=== PATIENT | female | born 1960 | race Caucasian/White ===

== ENCOUNTER → 2018-02-27 | Outpatient (CLI) | payer OTHER | LOC: FIMAGING 16:19 | PROVIDERS: ATTEND Family Medicine | DX: S92.355A Nondisplaced fracture of fifth metatarsal bone, left foot, initial encounter for closed fracture (principal) ==

== ENCOUNTER 2018-08-28 01:19 | Emergency (ER) | payer OTHER ==
--- NOTE | 2018-08-28 01:32 | EDPHY ---
H & P Stated Complaint: SVT, RAPID HR Time Seen by Provider: 08/28/18 01:32 HPI/ROS: HPI CHIEF COMPLAINT: Rapid heart rate. HISTORY OF PRESENT ILLNESS: Patient is a 57-year-old female presents emergency room stating that she is in SVT. Patient reports she was getting ready to go to bed approximately an hour ago standing in the kitchen doing dishes when all the sudden she felt a fast heart rate. Denies chest pain. States she has had this numerous times in the past. Usually converted with adenosine. She reports to me that she has been seen by Dr. Romano who scheduled for cardiac ablation at the end of August. Past Medical History: History of PSVT. Converted by adenosine. Past Surgical History: No recent surgery Social History: Denies drugs alcohol tobacco. Family History: Noncontributory ROS REVIEW OF SYSTEMS: 10 Systems were reviewed and negative with the exception of the elements mentioned in the history of present illness. Exam Constitutional triage nursing summary reviewed, vital signs reviewed, awake/ alert. Tachycardic 140s at triage. Eyes normal conjunctivae and sclera, EOMI, PERRLA. HENT normal inspection, atraumatic, moist mucus membranes, no epistaxis, neck supple/ no meningismus, no raccoon eyes. Respiratory clear to auscultation bilaterally, normal breath sounds, no respiratory distress, no wheezing. Cardiovascular tachycardic, regular rhythm, no murmur, no edema, distal pulses normal. Gastrointestinal soft, non-tender, no rebound, no guarding, normal bowel sounds, no distension, no pulsatile mass. Genitourinary no CVA tenderness. Musculoskeletal no midline vertebral tenderness, full range of motion, no calf swelling, no tenderness of extremities, no meningismus, good pulses, neurovascularly intact. Skin pink, warm, & dry, no rash, skin atraumatic. Neurologic awake, alert and oriented x 3, AAOx3, moves all 4 extremities equally, motor intact, sensory intact, CN II-XII intact, normal cerebellar, normal vision, normal speech. Psychiatric normal mood/affect. Heme/Lymph/Immune no lymphadenopathy. Differential Diagnosis: Differential diagnosis includes but is not limited to: SVT, AFib, AVRNT, V-tach, VFib ACS, atypical chest pain, pneumothorax, pneumonia, pulmonary embolism, aortic dissection, congestive heart failure, tumor, musculoskeletal pain, esophageal pain, GERD, peptic ulcer disease, pancreatitis Medical Decision Making: Plan for this patient IV establishment with IV fluid bolus, environmental monitoring specialist, vagal maneuvers, EKG, electrolytes, troponin Re-evaluation: EKG interpretation by me on record in [facility] system. Impression time of EKG 1:36 a.m. Junctional rhythm rate of 137, nonspecific intraventricular conduction delay. No acute ischemia. 0145: Vagal maneuver attempted however did not break her SVT. 4:05 a.m. patient's current heart rate 124. This was after 10 mg IV Lopressor. Given them heart rate is still in the 120s will consult Cardiology for further recommendations. Spoke with Cardiology Dr. Yuan, discussed the case at 5:00 a.m. In detail. He does recommend giving her a dose of adenosine. At this does not help her plan will be for diltiazem drip. 0518: Patient was moved from ER room 12 to ER room 1 where she was set up for cardioversion with adenosine. Patient was placed on full environmental monitoring specialist, a bag valve mask was in place and suction, she was placed on the EKG machine with rhythm strip. I was present at bedside. She was given 6 mg IV push of adenosine through her left AC IV. Her SVT in the 140s broke with the adenosine. Rhythm strip was captured and I do not appreciate any significant underlying cardiac arrhythmia. She tolerated this procedure very well. Currently at this time after the adenosine her heart rate is 77, blood pressure 102/82, pulse ox 99% on room air. Post adenosine EKG performed EKG interpretation by me on record in [facility] system. Impression time of EKG 5:17 a.m., sinus rhythm rate of 85, without any signs of acute ischemia. No ST elevation no significant ST depression. T-wave flattening noted V2 V3. 0631: Patient resting comfortably without any complaints. Current heart rate 70, blood pressure 97/77, denies chest pain or shortness of breath and is asking to be discharged. She responded well with adenosine. She had a repeat troponin that is negative. She denies any chest pain or shortness of breath. The patient is requesting discharge. I do recommend she follows up closely with cardiology Additionally if the patient develops chest pain, fast heart rate, shortness of breath or not doing well she should return to the emergency room she understands this and is comfortable this plan. Patient ambulated well throughout the emergency room in no acute distress. Eager for discharge. We discussed return precautions she understands return emergency room she develops worsening symptoms includes shortness of breath, chest pain, syncope, low heart rate or fast heart rate, not doing well Source: Patient - Personal History Current Tetanus Diphtheria and Acellular Pertussis (TDAP): No - Medical/Surgical History Hx Asthma: No Hx Chronic Respiratory Disease: No Hx Diabetes: No Hx Cardiac Disease: Yes Hx Renal Disease: No Hx Cirrhosis: No Hx Alcoholism: No Hx HIV/AIDS: No Hx Splenectomy or Spleen Trauma: No Other PMH: svt - Social History Smoking Status: Never smoked Constitutional: Initial Vital Signs Temperature (C) 36.6 C 08/28/18 01:23 Heart Rate 140 H 08/28/18 01:23 Respiratory Rate 16 08/28/18 01:23 Blood Pressure 110/86 H 08/28/18 01:23 O2 Sat (%) 95 08/28/18 01:23 O2 Delivery Mode Room Air Allergies/Adverse Reactions: No Known Allergies Allergy (Unverified 05/25/15 09:45) Home Medications: Medication Instructions Recorded No Medications [NO HOME 11/14/11 MEDICATIONS] Medical Decision Making - Data Points Laboratory Results: Laboratory Results 08/28/18 01:41 08/28/18 01:41 08/28/18 08/28/18 08/28/18 06:00 01:45 01:41 WBC RBC Hgb Hct MCV MCH MCHC RDW Plt Count MPV Neut % (Auto) Lymph % (Auto) [place] % (Auto) Eos % (Auto) Baso % (Auto) Nucleat RBC Rel Count Absolute Neuts (auto) Absolute Lymphs (auto) Absolute Monos (auto) Absolute Eos (auto) Absolute Basos (auto) Absolute Nucleated RBC Immature Gran % Immature Gran # Sodium 137 mEq/L mEq/L (135-145) Potassium 4.4 mEq/L mEq/L (3.5-5.2) Chloride 106 mEq/L mEq/L (97-110) Carbon Dioxide 23 mEq/l mEq/l (22-31) Anion Gap 8 mEq/L mEq/L (6-14) BUN 27 mg/dL H mg/dL (7-23) Creatinine 1.0 mg/dL mg/dL (0.6-1.0) Estimated GFR 57 Glucose 139 mg/dL H mg/dL (70-100) Calcium 9.8 mg/dL mg/dL (8.5-10.4) POC Troponin I 0.01 ng/mL ng/mL 0.00 ng/mL ng/mL (0.00-0.08) (0.00-0.08) 08/28/18 01:41 WBC 4.23 10^3/uL 10^3/uL (3.80-9.50) RBC 4.56 10^6/uL 10^6/uL (4.18-5.33) Hgb 14.7 g/dL g/dL (12.6-16.3) Hct 41.8 % % (38.0-47.0) MCV 91.7 fL fL (81.5-99.8) MCH 32.2 pg pg (27.9-34.1) MCHC 35.2 g/dL g/dL (32.4-36.7) RDW 11.9 % % (11.5-15.2) Plt Count 279 10^3/uL 10^3/uL (150-400) MPV 9.5 fL fL (8.7-11.7) Neut % (Auto) 49.9 % % (39.3-74.2) Lymph % (Auto) 39.2 % % (15.0-45.0) [place] % (Auto) 7.6 % % (4.5-13.0) Eos % (Auto) 2.8 % % (0.6-7.6) Baso % (Auto) 0.5 % % (0.3-1.7) Nucleat RBC Rel Count 0.0 % % (0.0-0.2) Absolute Neuts (auto) 2.11 10^3/uL 10^3/uL (1.70-6.50) Absolute Lymphs (auto) 1.66 10^3/uL 10^3/uL (1.00-3.00) Absolute Monos (auto) 0.32 10^3/uL 10^3/uL (0.30-0.80) Absolute Eos (auto) 0.12 10^3/uL 10^3/uL (0.03-0.40) Absolute Basos (auto) 0.02 10^3/uL 10^3/uL (0.02-0.10) Absolute Nucleated RBC 0.00 10^3/uL 10^3/uL (0-0.01) Immature Gran % 0.0 % % (0.0-1.1) Immature Gran # 0.00 10^3/uL 10^3/uL (0.00-0.10) Sodium Potassium Chloride Carbon Dioxide Anion Gap BUN Creatinine Estimated GFR Glucose Calcium POC Troponin I Medications Given: Discontinued Medications Adenosine (Adenosine) 6 mg IVP EDNOW ONE Stop: 08/28/18 04:57 Last Admin: 08/28/18 05:15 Dose: 6 mg Sodium Chloride (Ns) 1,000 mls @ 0 mls/hr IV EDNOW ONE; Wide Open PRN Reason: Protocol Stop: 08/28/18 01:34 Last Admin: 08/28/18 01:43 Dose: 1,000 mls Sodium Chloride (Ns) 1,000 mls @ 0 mls/hr IV ONCE ONE PRN Reason: Wide Open Stop: 08/28/18 03:24 Last Admin: 08/28/18 03:25 Dose: 1,000 mls Ketorolac Tromethamine (Toradol) 15 mg IVP EDNOW ONE Stop: 08/28/18 03:20 Last Admin: 08/28/18 03:24 Dose: 15 mg Metoprolol Tartrate (Lopressor Injection) 5 mg IVP EDNOW ONE Stop: 08/28/18 02:07 Last Admin: 08/28/18 02:12 Dose: 5 mg Metoprolol Tartrate (Lopressor Injection) 5 mg IVP EDNOW ONE Stop: 08/28/18 02:56 Last Admin: 08/28/18 03:14 Dose: 5 mg Metoprolol Tartrate (Lopressor Injection) 5 mg IVP EDNOW ONE Stop: 08/28/18 04:23 Last Admin: 08/28/18 04:29 Dose: 5 mg Metoprolol Tartrate (Lopressor Injection) 5 mg IVP EDNOW ONE Stop: 08/28/18 04:24 Last Admin: 08/28/18 04:29 Dose: Not Given Point of Care Test Results: Chemistry 08/28/18 08/28/18 06:00 01:45 POC Troponin I 0.01 ng/mL ng/mL 0.00 ng/mL ng/mL (0.00-0.08) (0.00-0.08) Departure - Departure Disposition: Home, Routine, Self-Care Clinical Impression: SVT (supraventricular tachycardia) Condition: Good Instructions: Supraventricular Tachycardia (ED) Additional Instructions: 1. Stay well-hydrated and rest. 2. Return to the emergency room if you have worsening symptoms includes fast heart rate, chest pain, shortness of breath or not doing well 3. Follow up with Cardiology. Referrals: NONE *PRIMARY CARE P,. [Primary Care Provider] - As per Instructions Phillip Romano MD [Medical Doctor] - As per Instructions
[2018-08-28] MEDS ORDERED: NS 1,000 ML IV ONE ×2 (01:33→03:23)
[2018-08-28 01:50] LABS: PLATELET COUNT 279 10^3/uL (150-400)
[2018-08-28] MEDS ORDERED: METOPROLOL TARTRATE 5 MG/5 ML INJ IVP ONE ×4 (02:06→04:23)
[2018-08-28] MEDS ORDERED: KETOROLAC 15 MG/1 ML SDV IVP ONE (03:19)
[2018-08-28] MEDS ORDERED: ADENOSINE 6 MG/2 ML VIAL IVP ONE (04:56)
[2018-08-28] MEDS ORDERED: ADENOSINE 6 MG/2 ML VIAL ONE (05:04)
[2018-08-28 06:39] VITALS: BP 125/72
--- NOTE | 2018-08-31 07:53 | CPEKG ---
Test Reason : OPEN Blood Pressure : / mmHG Vent. Rate : 137 BPM Atrial Rate : 000 BPM P-R Int : 000 ms QRS Dur : 118 ms QT Int : 330 ms P-R-T Axes : 000 000 -04 degrees QTc Int : 499 ms Junctional tachycardia Nonspecific intraventricular conduction delay Confirmed by Adolfo Mitchell ([id number]) on 08/31/2018 7:52:39 AM Referred By: Adolfo Mitchell Confirmed By:Adolfo Mitchell
--- NOTE | 2018-08-31 07:53 | CPEKG ---
Test Reason : OPEN Blood Pressure : / mmHG Vent. Rate : 085 BPM Atrial Rate : 084 BPM P-R Int : 149 ms QRS Dur : 095 ms QT Int : 369 ms P-R-T Axes : 075 064 051 degrees QTc Int : 439 ms Sinus rhythm Borderline T abnormalities, anterior leads Confirmed by Adolfo Mitchell ([id number]) on 08/31/2018 7:52:39 AM Referred By: Adolfo Mitchell Confirmed By:Adolfo Mitchell
== END 2018-08-28 06:40 | disposition home or self-care (01) ==
DX: I47.1 Supraventricular tachycardia (principal); E86.9 Volume depletion, unspecified
CPT/HCPCS: 84484-ER; 96374; J0153; J1885